=== PATIENT | male | born 1985 ===

== ENCOUNTER 2022-01-10 14:04 | Emergency (ER) | payer OTHER ==
[2022-01-10 14:12] VITALS: PULSE 88
[2022-01-10] MEDS: Lidocaine 2% with EPINEPHrine 1:100,000 20 ML MDV INJECT ONE (14:48)
[2022-01-10 15:08] VITALS: BP 138/96
== END 2022-01-10 15:09 | disposition home or self-care (01) ==
LOC: LL.ED 14:04
DX: S01.411A Laceration without foreign body of right cheek and temporomandibular area, initial encounter (principal); R03.0 Elevated blood-pressure reading, without diagnosis of hypertension; Z79.899 Other long term (current) drug therapy; W45.0XXA Nail entering through skin, initial encounter
CPT/HCPCS: 12011; 12013; 99282; 99283